=== PATIENT | female | born 1990 | race Two or more races ===

== ENCOUNTER 2017-03-18 08:16 | Day surgery (SDC) | payer OTHER ==
[2017-03-17 10:26] LABS: BLOOD UREA NITROGEN 17 mg/dL (7-18)
[~2017-03-18] VITALS: Ht 154.9 cm; Wt 64.5 kg
[~2017-03-18 08:16] MED LIST: IBUP200T64 PO
[2017-03-18] MEDS ORDERED: LACTATED RINGERS 1,000 ML IV SCH (09:15)
[2017-03-18 09:45] VITALS: BP 109/75
[2017-03-18] MEDS ORDERED: FLUORESCEIN SODIUM 500 MG/5 ML ONE (09:51)
[2017-03-18] MEDS ORDERED: PROPOFOL 10 MG/ML, 20ML ONE (10:02)
[2017-03-18] MEDS ORDERED: GLYCOPYRROLATE 0.2MG/1ML ONE (10:02)
[2017-03-18] MEDS ORDERED: DEXAMETHASONE 4 MG/ML, 1ML ONE (10:02)
[2017-03-18] MEDS ORDERED: SUCCINYLCHOLINE 20 MG/ML, 10ML ONE (10:02)
[2017-03-18] MEDS ORDERED: CEFOTETAN 1 GM ONE (10:02)
[2017-03-18] MEDS ORDERED: ROCURONIUM 10 MG/ML ONE (10:02)
[2017-03-18] MEDS ORDERED: NEOSTIGMINE 1 MG/ML, 10ML ONE (10:02)
[2017-03-18] MEDS ORDERED: ONDANSETRON 2MG/ML, 2ML ONE (10:02)
[2017-03-18] MEDS ORDERED: MIDAZOLAM 1 MG/ML, 2ML ONE (10:05)
[2017-03-18] MEDS ORDERED: FENTANYL PF 100 MCG/2ML ONE ×3 (10:05→11:15)
[2017-03-18] MEDS ORDERED: LIDOCAINE/PF 1%, 30ML ONE (10:24)
[2017-03-18] MEDS ORDERED: LIDOCAINE/PF 1%, 30ML INFIL ONE (10:25)
[2017-03-18] MEDS ORDERED: METRONIDAZOLE PMX 500MG/100ML 100 ML ONE (10:40)
[2017-03-18] MEDS ORDERED: MIDAZOLAM 1 MG/ML, 5ML ONE (11:16)
[2017-03-18] MEDS: FENTANYL PF 100 MCG/2ML IV PRN ×2 (11:20→11:35)
[2017-03-18] MEDS ORDERED: ONDANSETRON 2MG/ML, 2ML IVPush PRN (11:30)
[2017-03-18] MEDS ORDERED: EPHEDRINE 50 MG/ML, 1ML IVPush PRN (11:30)
[2017-03-18] MEDS ORDERED: HYDROmorphone 1 MG/ML, 1ML IV PRN (11:30)
[2017-03-18] MEDS ORDERED: LABETALOL 5MG/ML, 20ML IV PRN (11:30)
[2017-03-18] MEDS ORDERED: KETOROLAC 30 MG/1 ML IV PRN (11:30)
[2017-03-18] MEDS ORDERED: OXYcodone 5 MG/5 ML ORAL.SOL UDC PO PRN (11:30)
[2017-03-18] MEDS ORDERED: MEPERIDINE/PF 25MG/0.5ML IVPush PRN (11:30)
[2017-03-18] MEDS ORDERED: MIDAZOLAM 1 MG/ML, 2ML IV PRN (11:30)
[2017-03-18] MEDS ORDERED: MEPERIDINE/PF 25MG/0.5ML ONE (11:38)
[2017-03-18] MEDS ORDERED: KETOROLAC 30 MG/1 ML ONE (11:41)
== END 2017-03-18 15:03 ==
LOC: OUT 08:16
PROVIDERS: ATTEND Obstetrics & Gynecology Gynecology
DX: N70.91 Salpingitis, unspecified (principal); N73.6 Female pelvic peritoneal adhesions (postinfective); Z88.1 Allergy status to other antibiotic agents
CPT/HCPCS: 36415; 49321; 80048; 81003; 84703; 85025; 88112; 88305; J0330; J1100; J1885; J2250; J2405; J2704; J2710; J3010; J3490; J7120; S0074